=== PATIENT | female | born 1960 | race Caucasian/White ===

== ENCOUNTER 2018-10-16 05:46 | Inpatient (IN) | payer BC ==
[2018-10-04 10:18] LABS: HEMATOCRIT 41.5 % (37.0-47.0); HEMOGLOBIN 13.8 gm/dL (12.0-15.0); MCH 28.2 pg (26.0-34.0); MCHC 33.3 g/dL (28.0-37.0); MCV 84.6 fL (80.0-100.0); RBC 4.91 mil/uL (4.20-5.00)
[2018-10-04 10:20] LABS: URINE BILIRUBIN NEGATIVE (Negative); URINE BLOOD NEGATIVE (Negative); URINE CLARITY CLEAR; URINE COLOR YELLOW; URINE GLUCOSE-RANDOM* NEGATIVE (Negative); URINE KETONES NEGATIVE (Negative); URINE LEUKOCYTES-REFLEX NEGATIVE (Negative); URINE NITRITE-REFLEX NEGATIVE (Negative); URINE PROTEIN (DIPSTICK) NEGATIVE (Negative); URINE UROBILINOGEN 0.2 E.U./dl (0.2-1.0)
[2018-10-04 10:37] LABS: ALBUMIN 3.7 g/dL (3.4-5.0); CALCIUM 9.3 mg/dL (8.5-10.1); CREATININE 0.9 mg/dL (0.6-1.0); POTASSIUM 4.3 mmol/L (3.5-5.1)
--- NOTE | 2018-10-05 07:49 | EKG ---
[place] [address] [facility] [place] [place] [address] ELECTROCARDIOGRAM REPORT Name: KIERAN CORADO Room #: [facility]#: [id number] ������������������ Admission: ������������������ Attend Phys: Jun Mcintyre MD Discharge: ������������������ Date of : 60 Report #: [id number] ����������������������������������������������������������������� [id number] THIS REPORT FOR: //name// [facility] Test Date: 2018-10-04 Test Time: 10:20:09 Pat Name: KIERAN CORADO Department: Room: Gender: F Car Wrecker: MERY RAMIREZ : 1960 Requested By: Jun Mcintyre Order Number: [id number] MD: Jose Leon Measurements Intervals [place] Rate: 59 P: 27 RI: 174 QRS: 17 QRSD: 97 T: 3 QT: 434 QTc: 430 Interpretive Statements Sinus rhythm No significant abnormality No previous ECG available for comparison Electronically Signed On 10-05-2018 7:48:55 CDT by Jose Leon [email or web address] ��������������������������������������������� <ELECTRONICALLY SIGNED> ���������������������������������������� By: Jose Leon MD, [facility] ��������������������������������������������� 10/05/18 0748 1020 1020 Jose Leon MD, FACC /EPI
[~2018-10-16] VITALS: Ht 172.7 cm; Wt 118.5 kg
[~2018-10-16 05:46] MED LIST: ADVAIR HFA 115-12 G1 INH; AMBIEN CR 6.26.25 MG PO; ELETRIPTAN HBR20 MG PO; ESTROVEN 155 M155 MG PO; NASACORT10.8 ML NASAL; PROAIR RESPICL90 MCG INH; XANAX 0.25 MG0.25 MG PO; ZOLOFT100 MG PO; ZYRTEC10 M5 PO
[2018-10-16 10:43] VITALS: BP 152/79
--- NOTE | 2018-10-16 18:30 | NUR ---
PT RECEIVED FROM [facility] AT 1700 ALERT AND IN NO ACUTE DISTRESS. DSNG DRY AND INTACT. NO C/O PAIN. PT UP TO BSC W/ WALKER TO VOID AND DID WELL. CONT. CAPNOGRAPHY IN PLACE. O2 SAT 95% ON 4L. SOME DROWSINESS. ATE DINNER W/O NAUSEA. FRIENDS AT BEDSIDE.
[2018-10-16 20:50] VITALS: BP 130/73
--- NOTE | 2018-10-16 21:01 | NUR ---
PT. HAS ORDER FOR BUDESONIDE 2.5MG. PT ONLY RECEIVED .5MG. PHARMACY CALLED TO FIX ORDER.
[2018-10-16 21:50] VITALS: BP 187/96
[2018-10-17 00:11] VITALS: BP 173/83
--- NOTE | 2018-10-17 04:52 | NUR ---
PATIENT ASSESSED AND IS ALERT X 4. SKIN WARM AND DRY. RESP EVEN AND UNLABORED. LUNGS CTA. 02 AT 4LNC. RIGHT WRIST IV IS PATENT AND FLUSHES WELL. UP TO COMMODE TO VOID. PIVOT ON GOOD FOOT. RIGHT KNEE DRESSING PATENT WITH POLAR PACK. NO WOUNDS NOTED. TAKING REGULAR DIET. IV FLUIDS AND ANTIBIOTIC CONTINUE. NO NAUSEA STATED. BP APNEA MACHINE ON. PAIN MEDS FOR APAIN CONTROL. PROVENA IN POCKET TO RIGHT KNEE. CONT PLAN OF ACRE. WILL POSSIBLE BE DC AFTER PT TOMORROW AFTERNOON. CONT PLAN OF CARE.TOES JANICE WELL TO RIGHT FOOT. WILL MONIOTR FOR PAIN.
[2018-10-17 05:31] VITALS: BP 144/69
[2018-10-17 07:19] VITALS: BP 127/63
[2018-10-17] MEDS ORDERED: TRAMADOL 50 MG50 MG PO (09:27)
[2018-10-17] MEDS ORDERED: ASPIR 8181 MG PO (09:28)
[2018-10-17] MEDS ORDERED: NEURONTIN 300300 M1 PO (09:28)
--- NOTE | 2018-10-17 10:37 | NUR ---
Case opened to follow for dc planning. Pt is a&ox4 and was working and indep prior to her surgery. She indicates that she will be staying [place] [facility] [place] [facility] who [place] and can provide support and supervision as well as transport to f/u appts. The only concern with this plan is that the pt's friend has approx 7-8 steps to enter her home and additional steps inside. She is hoping to work on steps this afternoon or in the am with PT. She has a rwalker and is planning on starting outpt therapy at [facility] on Tuesday. Her friend can take her. No cm interventions indicated at this time. Will remain available should dc needs arise.
[2018-10-17 10:40] VITALS: BP 127/63
[2018-10-17 12:18] LABS: HEMATOCRIT 35.6 % (37.0-47.0); HEMOGLOBIN 11.6 gm/dL (12.0-15.0); MCH 27.8 pg (26.0-34.0); MCHC 32.5 g/dL (28.0-37.0); MCV 85.8 fL (80.0-100.0); RBC 4.15 mil/uL (4.20-5.00); RDW 14.4 % (10.5-14.5); WBC 14.3 thou/uL (4.0-11.0)
[2018-10-17 14:00] VITALS: BP 129/79
--- NOTE | 2018-10-17 17:28 | NUR ---
ASSUMED CARE OF PT AT APPROX 0700. PT IS ALERT AND ORIENTED X4 AND ABLE TO MAINTAIN 02 >90 ON RA AFTER BEING REMOVED FROM 02 AND CAP MONITORING IN AM. ASSESSMENT CHARTED. PT COMPLAINS OF VERY MINIMAL PAIN WITH THERAPY THAT IS CONTROLLED WITH PRN PAIN MEDICATIONS. WORKED VERY WELL WITH PT TODAY ANTICIPATE DC TOMORROW. UPDATED ON POC. MAKING GOOD PROGRESS TOWARDS POC GOALS. WILL CONTINUE TO MONITOR.
[2018-10-17 19:43] VITALS: BP 128/62
[2018-10-18 03:59] VITALS: BP 141/83
[2018-10-18 07:30] VITALS: BP 162/77
--- NOTE | 2018-10-18 07:34 | NUR ---
Assumed care at 1845. Pt resting in bed. AOX4. VSS. TERRY dressing on right knee clean dry and intact. Neuro intact. Pt states pain is much more tolerable. No identified needs at the moment. Will continue to monitor.
[2018-10-18 09:34] LABS: HEMATOCRIT 35.5 % (37.0-47.0); HEMOGLOBIN 11.7 gm/dL (12.0-15.0); MCH 28.4 pg (26.0-34.0); MCV 86.2 fL (80.0-100.0); RBC 4.12 mil/uL (4.20-5.00); RDW 14.5 % (10.5-14.5); WBC 9.4 thou/uL (4.0-11.0)
[2018-10-18 16:06] VITALS: BP 148/69
--- NOTE | 2018-10-18 16:19 | NUR ---
CARE TEAM INDICATED THAT PT IS MEDICALLY STABLE TO DC HOME THIS DAY. PT IS ESTABLISHED WITH OP PT APPOITMENT TUESDAY AT [facility]. PT HAS HER OWN FWW FOR USE UPON DC. NO THERE CM INTERVENTION INDICATED CASE CLOSED.
--- NOTE | 2018-10-18 16:23 | NUR ---
ASSUMED PT CARE AT 0700. PATIENT ALERT &ORIENTED X 4. ABLE TO VOICE HER NEEDS. REPORTS SLEPT GOOD LAST NIGHT. SKIN WARM AND DRY. LOTION APPLIED. TRACE EDEMA BLE, JANNETTE HOSE ON. VSS ON RA. CONTINUE TO BE ON BREATHING TX SCHEDULE. RIGHT WRIST IV IS PATENT AND FLUSHES WELL. MORNING MEDS GIVEN. REPORTS TO VOID. C/O PAIN ON RIGHT KNEE RATES PAIN 5/10, TRAMADOL GIVEN 2X SO FAR. PAIN GOES DOWN TO 2/10. RIGHT KNEE DRESSING PATENT WITH POLAR PACK. NO WOUNDS NOTED. TAKING REGULAR DIET. ANTIBIOTIC DONE, WILL BE DISCHARGE HOME, IV REMOVED. ORTHOPEDIC CAME TO TALK ABOUT OUT PATIENT FOLLOW UP. PT WILL BE DISCHARGE TODAY. FRIEND WILL PICK PT UP AROUND 6PM. WILL CONTINUE TO MONITOR.
--- NOTE | 2018-10-18 16:42 | O ---
[facility] [place] [address] OPERATIVE REPORT Name: KIERAN CORADO Room #: 463-P [facility] IN M.R.#: [id number] Admission: 10/16/18 ������������������ Attend Phys: Jnu Mcintyre MD Discharge: ������������������ Date of : 60 Report #: [id number] THIS REPORT FOR: //name// CC: Boubacar Mcintyre DATE OF SERVICE: 10/16/2018 PREOPERATIVE DIAGNOSIS: Right knee osteoarthritis. POSTOPERATIVE DIAGNOSIS: Right knee osteoarthritis. PROCEDURE: Right total knee arthroplasty using Navio robotic assistance. SURGEON: Jun Mcintyre MD. SENIOR WEB SERVICES DEVELOPER: Annie Lopez PA-C. ANESTHESIA: LMA with an adductor canal block. IMPLANTS: Box and Nephew size 4 Journey [employer]CS Oxinium femur, a size 3 tibia, size 10 polyethylene and size 32 patella. TOURNIQUET TIME: 57 minutes. ESTIMATED BLOOD LOSS: 25 mL. COMPLICATIONS: None. SPECIMENS: None. CONDITION UPON LEAVING THE OPERATING ROOM: Stable. INDICATIONS FOR PROCEDURE: The patient is a 57-year-old female with right knee osteoarthritis who failed conservative measures for this and after discussion with her, she elected for right total knee arthroplasty. DESCRIPTION OF PROCEDURE: Risks, benefits, alternatives and complications were discussed in detail with the patient including, but not limited to risk of anesthesia, risk of damage to nerves, arteries, blood vessels, risk for infection, bleeding, risk for continued knee pain and need for reoperation. Informed consent was obtained from the patient. Right knee was appropriately marked in the preoperative holding area. IV clindamycin was given for preoperative antibiotics. Adductor canal block was placed by anesthesia. She was brought to the operating room and placed in the supine position on the operating room table. LMA anesthesia was induced without complication. [address] [address] OPERATIVE REPORT Name: MAKKIERAN WORTHINGTON Room #: 463-P [facility] IN M.R.#: [id number] Admission: 10/16/18 ������������������ Attend Phys: Jun Mcintyre MD Discharge: ������������������ Date of : 60 Report #: [id number] Tourniquet was placed on the right thigh. Right lower extremity was prepped and draped in normal sterile fashion. Timeout was performed properly identifying the patient and procedure as well as the instrumentation and implants. All in the operating room were in agreement. Right lower extremity was exsanguinated. Tourniquet was inflated. Tourniquet time was 57 minutes. Standard midline approach to the knee was made with 10 blade through the skin. Dissection was taken down sharply to the fascia. Deep flaps were developed medially and laterally. A fresh 10-blade was used to make a medial parapatellar arthrotomy and the knee was inspected. There was severe tricompartmental osteoarthritis. It was decided to proceed with total knee arthroplasty. Reference pins were placed in the femur and the tibia and the knee was digitally mapped using the [employer] robotic system. We sized a size 4 femur and a size 3 tibia with a 10 spacer. After acceptance of the intraoperative plan, the distal femoral cut was made and the femoral cutting block was pinned in place and the femoral cuts were made. Attention was turned to the tibia. The remainder of the menisci was removed with Bovie cautery. Tibial resection guide was pinned in place using the Navio for placement of the guide. Tibial resection was made. Flexion and extension gaps were checked and found to have good balance in flexion and extension both medially and laterally. Tibia was sized, found to be a size 3. Size 3 tibial trial was placed, pinned and punched. The size 4 femoral trial was placed and the box cut was made. This was then trialed with a size 10 polyethylene. Knee was taken through range of motion, found to have a millimeter of laxity medially and laterally throughout range of motion. A 5 mm was taken off the posterior surface of the patella and a size 32 patellar trial button was placed. Knee was then taken through range of motion, found to have good patellar tracking. After this, trial components were removed. Bony ends were thoroughly irrigated with normal saline and final size 3 tibia, size 4 Journey BCS Oxinium femur and a size 32 patella were cemented in place using standard cementation techniques. Once the cement cured, a periarticular injection consisting of epinephrine, Toradol and ropivacaine was placed. After the cement cured, the tourniquet was deflated. Hemostasis was obtained with Bovie cautery. Final size 10 polyethylene was placed. A gram of vancomycin was placed deep in the joint. The fascia was closed with 0 Vicryl, skin was closed with 2-0 Vicryl, 3-0 Monocryl, Dermabond and a TERRY dressing was applied. The patient tolerated this procedure well and went to recovery room under care of anesthesia postoperatively. ��������������������������������������������� <ELECTRONICALLY SIGNED> ���������������������������������������� By: Jun Mcintyre MD ��������������������������������������������� 10/18/18 1642 1740 1808 Jun Mcintyre MD /nt
== END 2018-10-18 18:30 | disposition home or self-care (01) | DRG 470 ==
LOC: PRE 05:46 → 4W 05:59 → TBA 05:59 → PRE 09:38 → 4W 17:17 → ENTRNSPT 10-18 18:14 → 4W 10-18 18:30
PROVIDERS: ADMIT Orthopaedic Surgery
PROC: 0SRC069 Replacement of Right Knee Joint with Oxidized Zirconium on Polyethylene Synthetic Substitute, Cemented, Open Approach (ICD-10-PCS; principal; 2018-10-16)
PROC: 8E0Y0CZ Robotic Assisted Procedure of Lower Extremity, Open Approach (ICD-10-PCS; principal; 2018-10-16)
DX: M17.11 Unilateral primary osteoarthritis, right knee (principal); Z88.5 Allergy status to narcotic agent; Z88.0 Allergy status to penicillin; Z88.8 Allergy status to other drugs, medicaments and biological substances; Z91.040 Latex allergy status
CPT/HCPCS: 10047; 50010; 50101; 50415; 50954; 51130; 51225; 53000; 53078; 54118; 56527; 56528; 57095; 57103; 57110; 57127; 57180; 62110; 62900; 70005